=== PATIENT | male | born 1995 | race Two or more races ===

== ENCOUNTER 2019-05-18 22:54 | Emergency (ER) | payer SELFPAY ==
[2019-05-18] MEDS ORDERED: ASPIRIN 81 MG TABLET, CHEWABLE PO ONE (23:01)
--- NOTE | 2019-05-18 23:02 | ER Document Report ---
ED Medical Screen (RME) - General Stated Complaint: RAPD HEARTRATE/DIFFICULTY BREATHING Time Seen by Provider: 05/18/19 23:00 Notes: Patient is a 23-year-old male who presents to the emergency department with a chief complaint of chest pain and difficulty breathing. Patient states that he was at work and he does cleaning at work and then he all of a sudden had chest pain. Patient states that he feels like his heart is pounding. Exam: Tachycardia I have greeted and performed a rapid initial assessment of this patient. A comprehensive ED assessment and evaluation of the patient, analysis of test results and completion of medical decision making process will be conducted by an additional ED providers.
[2019-05-18 23:41] LABS: ABSOLUTE EOSINOPHILS # (AUTO) 0.1 10^3/uL (0.0-0.6); ABSOLUTE LYMPHOCYTES (AUTO) 1.6 10^3/uL (0.5-4.7); ABSOLUTE MONOCYTES (AUTO) 0.3 10^3/uL (0.1-1.4); ABSOLUTE NEUT (AUTO) 4.2 10^3/uL (1.7-8.2); BASOPHILS % (AUTO) 0.6 % (0-2); EOSINOPHILS % (AUTO) 1.7 % (0-6); HEMATOCRIT 40.5 % (37.9-51.0); HEMOGLOBIN 14.1 g/dL (13.5-17.0); LYMPHOCYTES % (AUTO) 25.5 % (13-45); MEAN CORPUSCULAR HEMOGLOBIN 29.4 pg (27.0-33.4); MEAN CORPUSCULAR HGB CONC 34.9 g/dL (32.0-36.0); MEAN CORPUSCULAR VOLUME 84 fl (80-97); PLATELET COUNT 221 10^3/uL (150-450); RED BLOOD COUNT 4.81 10^6/uL (4.35-5.55); RED CELL DISTRIBUTION WIDTH 13.4 % (11.5-14.0); SEGMENTED NEUTROPHILS % (AUTO) 67.2 % (42-78); TOTAL CELLS COUNTED % (AUTO) 100 %; WHITE BLOOD COUNT 6.3 10^3/uL (4.0-10.5)
--- NOTE | 2019-05-18 23:53 | RADIOLOGY REPORT (SQ) ---
EXAM DESCRIPTION: XR CHEST 1 VIEW COMPLETED DATE/TME: 05/18/2019 23:01 CLINICAL HISTORY: 23 years Male, chest pain COMPARISON: None. NUMBER OF VIEWS/TECHNIQUE: 1/AP FINDINGS: Adequate lung volume, clear parenchyma, normal cardiac silhouette, and intact bony thorax. IMPRESSION: No acute cardiopulmonary findings.
[2019-05-19] LABS: URINE AMPHETAMINES SCREEN NEGATIVE; URINE BARBITURATES SCREEN NEGATIVE; URINE BENZODIAZEPINES SCREEN NEGATIVE; URINE COCAINE SCREEN NEGATIVE; URINE METHADONE SCREEN NEGATIVE; URINE PHENCYCLIDINE SCREEN NEGATIVE
[2019-05-19 00:03] LABS: ALBUMIN 5.2 g/dL (3.5-5.0); ALCOHOL < 10 mg/dL (NONE DETECTED); ALKALINE PHOSPHATASE 135 U/L (38-126); ANION GAP 14 (5-19); ASPARTATE AMINO TRANSFERASE 28 U/L (17-59); BILIRUBIN,DIRECT 0.1 mg/dL (0.0-0.4); BILIRUBIN,TOTAL 0.3 mg/dL (0.2-1.3); BLOOD UREA NITROGEN 19 mg/dL (7-20); CALCIUM 9.7 mg/dL (8.4-10.2); CARBON DIOXIDE 23 mmol/L (22-30); CHLORIDE 99 mmol/L (98-107); CREATINE KINASE 325 U/L (55-170); GLUCOSE 151 mg/dL (75-110); POTASSIUM 3.5 mmol/L (3.6-5.0); TOTAL PROTEIN 8.3 g/dL (6.3-8.2); URINE MARIJUANA (THC) SCREEN UNCONFIRMED POSITIVE
--- NOTE | 2019-05-19 00:55 | ER Document Report ---
ED General - General Chief Complaint: Palpitations Stated Complaint: RAPD HEARTRATE/DIFFICULTY BREATHING Time Seen by Provider: 05/18/19 23:00 - Related Data Allergies/Adverse Reactions: No Known Allergies Allergy (Unverified 05/18/19 23:07) Past Medical History - Social History Smoking Status: Unknown if Ever Smoked Family History: Reviewed & Not Pertinent Patient has suicidal ideation: No Patient has homicidal ideation: No Physical Exam - Vital signs Vitals: Resp 13 05/19/19 00:07 - Notes Notes: Patient presents to the emergency department complaining of rapid heart rate charted earlier this evening while at work and last for about 3 hours. Says he feels better right now. He also has some chest pain at the time it is over the left anterior chest and nonradiating and described as a stabbing sensation. Change with breathing or movement. He does report shortness of breath and diaphoresis with this recent fevers cough nausea vomiting or abdominal pain diarrhea. Appetite is been good he been drinking fluids. Does report that he drinks a large amount of coffee or energy drinks during the day was drinking some today. He denies any illegal drugs. The patient is very vague about all symptoms and a very poor historian he denies any recent travel or immobilization Past medical history is negative for diabetes hypertension or heart disease. Social history denies smoking or drinking or illegal drugs Review of systems pertinent positives and negatives in HPI otherwise all the systems were reviewed and acutely negative PHYSICIAN EXAM -vital signs are noted triage note and note from triage reviewed GENERAL: Well-appearing, well-nourished and in no acute distress HEAD: Atraumatic, normocephalic. EYES: Pupils equal round and reactive to light, extraocular movements intact, no nystagmus sclera anicteric, conjunctiva are normal. ENT: nares patent, oropharynx clear without exudates. Moist mucous membranes. NECK: supple without lymphadenopathy LUNGS: Breath sounds clear to auscultation bilaterally and equal. No wheezes rales or rhonchi. HEART: Regular rate and rhythm without murmurs ABDOMEN: Soft, nontender, normoactive bowel sounds. EXTREMITIES: No deformity, no edema. No palpable cords NEUROLOGICAL: He seems confused at times cranial nerves she has symmetrical smile facial expressions. His motor strength is symmetric throughout. Sensation is intact light touch. He does seem a bit anxious PSYCH: Normal mood, normal affect. SKIN: Warm, Dry, normal turgor, no rashes or lesions noted. BACK-nontender in the midline Differential diagnosis includes anxiety dehydration palpitations drug abuse Course - Re-evaluation Re-evalutation: 05/19/19 00:58 ED patient is remained stable he is been on a visual training aide with notes of arrhythmias amatory studies were reviewed from the laboratory Medical decision making patient presents with an episode of palpitations and chest pain. He has no risk factors for cardiac disease does have marijuana in his system is quite possible had some other stimulant in it. Reports that he has drinks large amount of coffee and energy drinks and but it may be related to that. Work appears unremarkable I see no life-threatening cause of his chest pain at this point he can be discharged home anabel with him the need to cut back on his coffee and energy drinks and plan plenty of fluids Dictation was done using voice recognition software. There may be some grammatical errors which are unintentional I discussed results of laboratory findings and diagnostic test with patient/family. The treatment plan was explained and I reviewed the discharge instructions with them. Questions were answered. The patient/family verbalizes understanding - Vital Signs Vital signs: Temp Pulse Resp BP Pulse Ox 98.2 F 18 145/98 H 100 05/19/19 02:37 05/19/19 01:19 05/19/19 01:19 05/19/19 01:19 - Laboratory Result Diagrams: 05/18/19 23:29 05/18/19 23:29 Laboratory results interpreted by me: 05/18/19 23:29 Sodium 135.8 L Potassium 3.5 L Glucose 151 H Alkaline Phosphatase 135 H Creatine Kinase 325 H Total Protein 8.3 H Albumin 5.2 H Discharge - Discharge Clinical Impression: Palpitations, Hyperglycemia Chest pain Qualifiers: Chest pain type: unspecified Qualified Code(s): R07.9 - Chest pain, unspecified Disposition: HOME, SELF-CARE Instructions: Chest Pain of Unclear Cause ([facility]), Palpitations (Irregular or Rapid Heartrate) ([facility]) Additional Instructions: Please review the discharge instructions, they will tell you about your disease/injury and what you need to return to the ED for Return to the ED if you feel worse or can follow-up with your family doctor Drink plenty of fluids Decrease the amount of coffee and energy drinks to drink Your sugar was elevated today needs to be rechecked again in 1 week Follow-up in the clinic in 2 to 3 days if not better otherwise in 1 week to rech lisseth your sugar Your blood pressure was elevated today needs to be rechecked again in 1 to 2 weeks to determine if need to be on medication or have your medications adjusted. Untreated hypertension can cause heart attack stroke and kidney failure but Forms: Elevated Blood Pressure, Return to Work
[2019-05-19 03:03] VITALS: BP 119/57
--- NOTE | 2019-05-19 14:31 | EKG REPORT ---
SEVERITY:- OTHERWISE NORMAL ECG - SINUS TACHYCARDIA : Confirmed by: Malu Gannon MD 19-May-2019 14:30:20
== END 2019-05-19 03:03 | disposition home or self-care (01) ==
LOC: ER 22:54
DX: R00.2 Palpitations (principal); R73.9 Hyperglycemia, unspecified; R06.02 Shortness of breath; R07.9 Chest pain, unspecified; R61 Generalized hyperhidrosis; R50.9 Fever, unspecified; R05 Cough; R11.2 Nausea with vomiting, unspecified
CPT/HCPCS: 36415; 71045; 80053; 80307; 82550; 83735; 84484; 85025; 93005; 93010; 99285